=== PATIENT | female | born 1940 | race Caucasian/White ===

== ENCOUNTER 2021-06-09 01:11 | Inpatient (IN) | payer MEDICARE, SELFPAY ==
[~2021-06-09] VITALS: Ht 167.6 cm; Wt 59.0 kg
--- NOTE | 2021-06-09 01:18 | NUR ---
PT JEROME HIDALGO. TAKEN TO CHAIR
--- NOTE | 2021-06-09 01:19 | NUR ---
Dr. Urbina examining patient.
[2021-06-09 01:25] VITALS: BP 152/60
[2021-06-09] MEDS ORDERED: AZITHROMYCIN 500 MG in DEXTROSE 5% 250 ML IV ONE (01:25)
[2021-06-09 01:41] LABS: BASOPHILS # (AUTO) 0.1 K/uL (0.00-0.22); BASOPHILS % (AUTO) 0.4 % (0.0-2.0); EOSINOPHILS # (AUTO) 0.2 K/uL (0-0.4); EOSINOPHILS % (AUTO) 0.9 % (0.0-4.0); HEMATOCRIT 27.2 % (36-48); HEMOGLOBIN 8.5 g/dL (12.0-16.0); LYMPHOCYTES # (AUTO) 1.3 K/uL (2.5-16.5); LYMPHOCYTES % (AUTO) 6.8 % (20.5-51.1); MEAN CORPUSCULAR HEMOGLOBIN 27 pg (27-31); MEAN CORPUSCULAR HGB CONC 31 g/dL (33-37); MEAN CORPUSCULAR VOLUME 85.8 fL (80-94); MONOCYTES # (AUTO) 1.9 K/uL (0.8-1.0); MONOCYTES % (AUTO) 9.7 % (1.7-9.3); NEUTROPHILS # (AUTO) 15.7 K/uL (1.8-7.7); PLATELET COUNT (AUTO) 420 K/uL (140-450); RED BLOOD CELL COUNT(AUTO) 3.17 MIL/uL (4.20-5.40); RED CELL DISTRIBUTION WIDTH 18.3 % (11.6-13.7); WHITE BLOOD COUNT (AUTO) 19.1 K/uL (4.8-10.8)
--- NOTE | 2021-06-09 01:53 | NUR ---
[place] [facility] [facility] [place] PT IS COVID+ FOR THE SECOND TIME. PT IS FULLY VACCINATED. PT IS ON 4L NC AT 98%. HX- AFIB, HTN DM
[2021-06-09 02:12] LABS: ALBUMIN 1.9 g/dL (3.4-5.0); ANION GAP 10.4 (8-16); ASPARTATE AMINOTRANSFERASE 30 U/L (15-37); CARBON DIOXIDE 30.9 mmol/L (21-32); CHLORIDE 103 mmol/L (98-107); CREATININE 1.1 mg/dL (0.6-1.3); GLUCOSE 153 mg/dL (74-106); POTASSIUM 4.3 mmol/L (3.5-5.1); SODIUM SERUM 140 mmol/L (136-145); TOTAL BILIRUBIN 0.7 mg/dL (0.0-1.0); UREA NITROGEN, BLOOD 30 mg/dL (7-18)
[2021-06-09 02:24] LABS: NEUTROPHILS % (AUTO) 82.2 % (42.2-75.2)
[2021-06-09] MEDS ORDERED: cefTRIAXone 1,000 MG VIAL ONE (04:02)
--- NOTE | 2021-06-09 04:08 | NUR ---
PT TAKEN TO CT
--- NOTE | 2021-06-09 04:26 | NUR ---
PT RETURN FROM CT
--- NOTE | 2021-06-09 05:20 | NUR ---
boosted patient up and repositioned patient-- tolerated well.
[2021-06-09] MEDS ORDERED: AZITHROMYCIN 500 MG INJ VIAL IV ONE (05:35)
--- NOTE | 2021-06-09 06:25 | NUR ---
patient complaining of difficulty breathing and chest pressure. RONY mota asked to call RT for breathing tx. called RT to come.
--- NOTE | 2021-06-09 08:00 | NUR ---
PT ATE 100% BREAKFAST, Patient appears to be resting in bed. Vital Signs within normal limits. Respirations even and unlabored.
[2021-06-09] MEDS ORDERED: guaiFENesin DM 200/20 MG-10 ML 10 ML UDC PO PRN (08:15)
[2021-06-09] MEDS ORDERED: POTASSIUM CHLORIDE 10 MEQ TABER PO PRN (08:15)
[2021-06-09] MEDS: NACL 0.9% 1,000 ML IV SCH ×2 (08:15→23:29)
[2021-06-09] MEDS ORDERED: ACETAMINOPHEN 325 MG TAB PO PRN (08:15)
[2021-06-09] MEDS: CLINDAMYCIN 600 MG in DEXTROSE 5% 50 ML IV SCH ×3 (08:15→23:30)
[2021-06-09] MEDS ORDERED: ONDANSETRON 4 MG/2 ML VIAL IM/IVP PRN (08:15)
[2021-06-09] MEDS ORDERED: ALBUTEROL HFA MDI 90 MCG/ACTUATION 8 GM INH PRN (08:20)
[2021-06-09 08:57] LABS: PROTHROMBIN TIME 14.7 secs (10.8-13.4)
[2021-06-09] MEDS ORDERED: COMMUNICATION ORDER MC SCH ×2 (09:00)
[2021-06-09] MEDS: ZINC SULF 220 MG CAP PO SCH (09:00)
[2021-06-09] MEDS: BARICITINIB 2 MG TAB PO SCH ×2 (09:00→14:42)
[2021-06-09] MEDS: ASCORBIC ACID 500 MG TAB PO SCH (09:00)
[2021-06-09] MEDS ORDERED: LEVOFLOXACIN 500 MG/D5W PREMIX 100 ML IV SCH (09:00)
[2021-06-09] MEDS: PANTOPRAZOLE 40 MG TABEC PO SCH (09:00)
[2021-06-09 09:12] LABS: CHOL/HDL RATIO 3.9 (1-4.5); FREE T4 (FREE THYROXINE) 1.36 ng/dL (0.76-1.46); MAGNESIUM 2.4 mg/dL (1.8-2.4); PHOSPHORUS 3.4 mg/dL (2.5-4.9); THYROID STIMULATING HORMONE 2.34 uIU/mL (0.34-3.74)
[2021-06-09] MEDS ORDERED: remdesivir CLINICAL MONITORING 1 EA MISC MC PRN (09:55)
[2021-06-09] MEDS ORDERED: REMDESIVIR. 200 MG in NACL 0.9% 100 ML IV SCH (12:00)
--- NOTE | 2021-06-09 12:00 | NUR ---
PT SOILED HERSELF, CLEAN GROWN AND NEW LINENS GIVEN Addendum: 06/09/21 at 1734 by JUSTYN UNABLE TO OBTAIN UA.
[2021-06-09] MEDS ORDERED: CLINDAMYCIN 600 MG/4 ML VIAL ONE ×2 (14:12→22:59)
[2021-06-09] MEDS ORDERED: LEVOFLOXACIN 500 MG/D5W PREMIX 100 ML IV ONE (14:14)
--- NOTE | 2021-06-09 14:30 | NUR ---
DR GORDON AT BEDSIDE ADVISED AM MEDS GIVEN LATE, HE STS "THANK YOU FOR LETTING ME KNOW."
[2021-06-09] MEDS ORDERED: RENAL DOSING PER PHARMACY MC PRN (14:55)
--- NOTE | 2021-06-09 15:30 | NUR ---
Pt report given to DANIELA Rubin Transfer of care at this time.
--- NOTE | 2021-06-09 15:42 | NUR ---
PT MOVED FROM CHAIR E TO BED 13
--- NOTE | 2021-06-09 16:30 | NUR ---
Assumed care of pt at this time. Pt is AOX4, able to make needs known. Resp even and unlabored on 4LPM at this time. Lung sounds are clear/dim. Abd soft and non-tender. Moderate assistance needed. Pt assisted to reposition for comfort. Incont X2. Pulses are equal bilat. Fall risk preventions in place at this time.
[2021-06-09] MEDS: HYDROcodone/APAP 7.5/325 MG 1 TAB PO PRN (17:41)
--- NOTE | 2021-06-09 19:34 | NUR ---
Pt report given to DANIELA Funes. Transfer of care at this time.
--- NOTE | 2021-06-09 19:37 | NUR ---
Brigitte diamond in ED - 06/09/21 at 1938 by [facility] Pt report given to DANIELA Funes. Transfer of care at this time.
[2021-06-09] MEDS: FUROSEMIDE 20 MG/2 ML VIAL IVP SCH (23:15)
[2021-06-10] MEDS: ZOLPIDEM 5 MG TAB PO PRN (01:41)
--- NOTE | 2021-06-10 04:14 | NUR ---
PATIENT AWOKE WITH A PANIC, PATIENT HEART RATE 150s and goes down to 110s. patient vfib
[2021-06-10] MEDS ORDERED: CLINDAMYCIN 600 MG/4 ML VIAL ONE ×3 (04:26→23:04)
--- NOTE | 2021-06-10 05:27 | NUR ---
PT REPOSITIONED IN BED FOR COMFORT. HOB RAISED, RAILS UP X2, AND BED IN LOWEST SETTING.
--- NOTE | 2021-06-10 05:27 | NUR ---
MRSA AND NOVEL SWABS COLLECTED AND WALKED TO LAB.
[2021-06-10] MEDS: CLINDAMYCIN 600 MG in DEXTROSE 5% 50 ML IV SCH ×3 (05:34→23:20)
--- NOTE | 2021-06-10 06:40 | NUR ---
PT DIAPER CHANGED AND REPOSITIONED. PT TOLERATED WELL.
[2021-06-10] MEDS ORDERED: NACL 0.9% 1,000 ML IV SCH (07:05)
[2021-06-10] MEDS ORDERED: NICARDIPINE HYDROCHLORIDE 2.5 MG/ML VIAL IV ONE (07:05)
[2021-06-10] MEDS ORDERED: DILTIAZEM 25 MG/5 ML VIAL IVP ONE (07:06)
[2021-06-10] MEDS ORDERED: DILTIAZEM 25 MG/5 ML VIAL IVP SCH (07:15)
--- NOTE | 2021-06-10 07:30 | NUR ---
RECEIVED PT IN [facility] AOX4. AFIB ON MONITOR. DENIES PAIN OR DISCOMFORT. IV INTACT AND PATENT INFUSING FLUIDS TOLERATING WELL. NAD. SAFETY MAINTAINED.
[2021-06-10 08:07] LABS: T4 (THYROXINE) 6.3 ug/dL (4.5-12.0)
--- NOTE | 2021-06-10 08:58 | NUR ---
PT MOVED TO BED 05
[2021-06-10] MEDS: ASCORBIC ACID 500 MG TAB PO SCH (09:00)
[2021-06-10] MEDS: PANTOPRAZOLE 40 MG TABEC PO SCH (09:00)
[2021-06-10] MEDS ORDERED: BARICITINIB 2 MG TAB PO SCH (09:00)
[2021-06-10] MEDS: ZINC SULF 220 MG CAP PO SCH (09:00)
[2021-06-10] MEDS: LEVOFLOXACIN 250 MG/D5 PREMIX 50 ML IV SCH (09:00)
[2021-06-10] MEDS: FUROSEMIDE 20 MG/2 ML VIAL IVP SCH ×2 (09:00→23:23)
[2021-06-10] MEDS: NACL 0.9% 1,000 ML IV SCH (09:15)
--- NOTE | 2021-06-10 09:30 | NUR ---
ADRIANA WICK PLACED CHANGED AND REPOSITIONED FOR COMFORT. AFIB ON MONITOR. RECEIVED ORDERS TO PLACE HOME MEDS. NAD. SAFETY MAINTAINED.
[2021-06-10 09:49] LABS: BASOPHILS % (AUTO) 0.1 % (0.0-2.0); HEMATOCRIT 23.8 % (36-48); HEMOGLOBIN 7.5 g/dL (12.0-16.0); LYMPHOCYTES # (AUTO) 0.6 K/uL (2.5-16.5); LYMPHOCYTES % (AUTO) 4.5 % (20.5-51.1); MEAN CORPUSCULAR HEMOGLOBIN 27 pg (27-31); MEAN CORPUSCULAR HGB CONC 32 g/dL (33-37); MEAN CORPUSCULAR VOLUME 85.8 fL (80-94); MONOCYTES # (AUTO) 0.5 K/uL (0.8-1.0); MONOCYTES % (AUTO) 3.6 % (1.7-9.3); NEUTROPHILS # (AUTO) 11.8 K/uL (1.8-7.7); NEUTROPHILS % (AUTO) 91.8 % (42.2-75.2); PLATELET COUNT (AUTO) 347 K/uL (140-450); RED BLOOD CELL COUNT(AUTO) 2.77 MIL/uL (4.20-5.40); RED CELL DISTRIBUTION WIDTH 18.5 % (11.6-13.7); WHITE BLOOD COUNT (AUTO) 12.9 K/uL (4.8-10.8)
[2021-06-10] MEDS ORDERED: POTA10TA70 PO (09:57)
[2021-06-10] MEDS ORDERED: DABI150C PO (09:57)
[2021-06-10] MEDS ORDERED: LEVO0.114 PO (09:57)
[2021-06-10] MEDS ORDERED: FURO-572 PO (09:57)
[2021-06-10] MEDS ORDERED: ATOR40TA PO (09:57)
[2021-06-10] MEDS ORDERED: DILT-135 PO (09:57)
[2021-06-10] MEDS ORDERED: GLIP5TER PO (09:57)
[2021-06-10] MEDS ORDERED: METO25TA PO (09:57)
[2021-06-10] MEDS ORDERED: DILTIAZEM 25 MG/5 ML VIAL IVP PRN (10:05)
[2021-06-10 10:09] LABS: ALBUMIN 1.8 g/dL (3.4-5.0); ANION GAP 12.9 (8-16); ASPARTATE AMINOTRANSFERASE 24 U/L (15-37); CARBON DIOXIDE 30.3 mmol/L (21-32); CHLORIDE 105 mmol/L (98-107); GLUCOSE 189 mg/dL (74-106); POTASSIUM 4.2 mmol/L (3.5-5.1); SODIUM SERUM 144 mmol/L (136-145); TOTAL BILIRUBIN 0.5 mg/dL (0.0-1.0); UREA NITROGEN, BLOOD 25 mg/dL (7-18)
[2021-06-10] MEDS ORDERED: METOPROLOL 50 MG TAB PO SCH (11:00)
[2021-06-10] MEDS ORDERED: DILTIAZEM 120 MG CAPER PO SCH (11:00)
[2021-06-10] MEDS ORDERED: REMDESIVIR. 100 MG in NACL 0.9% 100 ML IV SCH (12:00)
--- NOTE | 2021-06-10 13:00 | NUR ---
BEDSIDE THORACENTESIS BEING PERFORMED
--- NOTE | 2021-06-10 16:18 | NUR ---
PATIENT HAS BEEN SCREENED AND CATEGORIZED MODERATE NUTRITION RISK. PATIENT WILL BE SEEN WITHIN 3-5 DAYS OF ADMISSION. / BHARATH [address]
--- NOTE | 2021-06-10 18:32 | NUR ---
PT RESTING IN RNEY NO CHANGES NOTED. SAFETY MAINTAINED
--- NOTE | 2021-06-10 19:16 | NUR ---
REPORT RECEIVED FROM DANIELA CHAVIRA FOR CONTINUITY OF PT CARE AT THIS TIME.
--- NOTE | 2021-06-10 19:24 | NUR ---
PT LAYING IN BED AWAKE BED LOCKED IN LOWEST POSITION W X2 SIDERAILS UP FOR PT SAFETY. HOB SLIGHTLY ELEVATED. PT REPORTS SLIGHT SOB PT ON 2L NC W O2 SAT 98%, DENIES CHEST PAIN, NAUSEA, DIZZYNESS. PT REPORTS MILD TAIL BONE PAIN FROM LAYING DOWN BUT JUST REPOSITIONED FOR COMFORT AND FEELING BETTER. BREATHING EVEN AND UNLABORED. NAD NOTED WILL CONTINUE TO MONITOR. VSS ON MONITOR.
--- NOTE | 2021-06-10 20:07 | NUR ---
CALLED DANIELA GONZALEZ TO GIVE REPORT. NO ANSWER AT THIS TIME.
--- NOTE | 2021-06-10 20:56 | NUR ---
Pt report given to DANIELA GONZALEZ. Transfer of care at this time.
--- NOTE | 2021-06-10 21:25 | NUR ---
Patient will be admitted to care of [facility]. Admited to TELEMETRY. Belongings list completed. Report to CECI GONZALEZ.
[2021-06-10 21:28] VITALS: BP 135/105
--- NOTE | 2021-06-10 21:45 | NUR ---
RECEIVED PT FROM ER NURSE FOR CONTINUITY OF CARE VIA POLI. PT A&O X 4. ON 4L O2 VIA NC SATING AT 98%. PT HAS IV ON R AC G18 PATENT AND INTACT. SKIN WARM, DRY AND INTACT. PT WAS ORIENTED TO ROOM AND CALL LIGHT.CLEANED AND CHANGED. PROVIDED WARM BLANKETS.BED IN LOW LOCKED POSITION. MRSA SWAB DONE. ALL PRECAUTIONS IN PLACE. WILL CONTINUE TO MONITOR.
--- NOTE | 2021-06-10 22:16 | NUR ---
Note lobo in EDM - 06/11/21 at 0533 by ALFONSO Patient will be admitted to care of [facility]. Admited to TELEMETRY. Belongings list completed. Report to CECI GONZALEZ.
[2021-06-10] MEDS: DABIGATRAN ETEXILATE MESYLAT 75 MG CAP PO SCH (23:22)
[2021-06-10] MEDS: METOPROLOL 50 MG TAB PO SCH (23:23)
--- NOTE | 2021-06-11 | NUR ---
SCHEDULED MEDICATIONS GIVEN. PT TOLERATED WELL. ALL PRECAUTIONS IN PLACE. WILL CONTINUE TO MONITOR.
--- NOTE | 2021-06-11 02:00 | NUR ---
PT ASLEEP. VISIBLE CHEST RISE AND FALL NOTED.CALL LIGHT WITHIN REACH. WILL CONTINUE TO MONITOR.
[2021-06-11 04:00] VITALS: BP 140/63
[2021-06-11] MEDS ORDERED: CLINDAMYCIN 600 MG/4 ML VIAL ONE (04:03)
--- NOTE | 2021-06-11 04:24 | NUR ---
SCHEDULED MEDICATIONS GIVEN. PT TOLERATED WELL. ALL PRECAUTIONS IN PLACE. WILL CONTINUE TO MONITOR.
[2021-06-11] MEDS: CLINDAMYCIN 600 MG in DEXTROSE 5% 50 ML IV SCH ×3 (04:37→21:00)
--- NOTE | 2021-06-11 06:15 | NUR ---
SCHEDULED MEDICATIONS GIVEN. PT TOLERATED WELL. ALL PRECAUTIONS IN PLACE. WILL CONTINUE TO MONITOR.
[2021-06-11] MEDS: LEVOTHYROXINE 0.112 MG TAB PO SCH (06:28)
[2021-06-11 06:56] LABS: ALBUMIN 1.8 g/dL (3.4-5.0); ANION GAP 9.5 (8-16); ASPARTATE AMINOTRANSFERASE 28 U/L (15-37); CARBON DIOXIDE 31.1 mmol/L (21-32); CHLORIDE 103 mmol/L (98-107); GLUCOSE 159 mg/dL (74-106); POTASSIUM 3.6 mmol/L (3.5-5.1); SODIUM SERUM 140 mmol/L (136-145); TOTAL BILIRUBIN 0.4 mg/dL (0.0-1.0); UREA NITROGEN, BLOOD 24 mg/dL (7-18)
--- NOTE | 2021-06-11 06:56 | NUR ---
PT IS STABLE. NO ACUTE EVENTS THROUGHOUT THE NIGHT. NO S/SX OF DISTRESS AT THE MOMENT. BREATHING EQUAL AND UNLABORED. ALL NEEDS MET. ALL SAFETY MEASURES IN PLACE.WILL ENDORSE TO AM SHIFT NURSE.
[2021-06-11 07:24] LABS: BASOPHILS % (AUTO) 0.1 % (0.0-2.0); HEMATOCRIT 22.3 % (36-48); LYMPHOCYTES # (AUTO) 0.9 K/uL (2.5-16.5); MEAN CORPUSCULAR HEMOGLOBIN 27 pg (27-31); MEAN CORPUSCULAR HGB CONC 31 g/dL (33-37); MEAN CORPUSCULAR VOLUME 85.8 fL (80-94); MONOCYTES # (AUTO) 0.7 K/uL (0.8-1.0); MONOCYTES % (AUTO) 4.1 % (1.7-9.3); NEUTROPHILS # (AUTO) 15.4 K/uL (1.8-7.7); NEUTROPHILS % (AUTO) 90.8 % (42.2-75.2); PLATELET COUNT (AUTO) 328 K/uL (140-450); RED CELL DISTRIBUTION WIDTH 18.3 % (11.6-13.7)
--- NOTE | 2021-06-11 07:30 | NUR ---
RECEIVED PT AAOX4. NO SOB NOTED. NO C/O PAIN AT THIS TIME. IV TO RAC PATENT AND INTACT. CHEST, DIMINISHED AIR ENTRY TO THE BASES, PT ON 4 LPM OXYGEN VIA NASAL CANULA. ABDOMEN SOFT, BOWEL SOUNDS PRESENT. BED ON LOW POSITION WITH 3 SIDE RAILS RAISED UP. INSTRUCTED PT TO CALL FOR ASSISTANCE, CALL LIGHT WITHIN REACH, PT VERBALIZED UNDERSTANDING.
--- NOTE | 2021-06-11 07:40 | NUR ---
ENDORSED TO AM SHIFT NURSE FOR CONTINUITY OF CARE. PT IS STABLE.
[2021-06-11 08:00] VITALS: BP 149/86
[2021-06-11] MEDS: ATORVASTATIN 20 MG TAB PO SCH (08:44)
[2021-06-11] MEDS: DABIGATRAN ETEXILATE MESYLAT 75 MG CAP PO SCH ×2 (08:45→21:00)
[2021-06-11] MEDS: PANTOPRAZOLE 40 MG TABEC PO SCH (08:47)
[2021-06-11] MEDS: ZINC SULF 220 MG CAP PO SCH (08:47)
[2021-06-11] MEDS: METOPROLOL 50 MG TAB PO SCH ×2 (08:47→21:00)
[2021-06-11] MEDS: DILTIAZEM 120 MG CAPER PO SCH (08:47)
[2021-06-11] MEDS: ASCORBIC ACID 500 MG TAB PO SCH (08:48)
[2021-06-11] MEDS: glipiZIDE 5 MG TAB PO SCH (08:48)
[2021-06-11] MEDS: LEVOFLOXACIN 250 MG/D5 PREMIX 50 ML IV SCH (08:49)
[2021-06-11] MEDS: FUROSEMIDE 20 MG/2 ML VIAL IVP SCH ×2 (08:49→21:00)
--- NOTE | 2021-06-11 11:10 | NUR ---
PHYSICAL THERAPY ON GOING AT THE BEDSIDE.
[2021-06-11 12:00] VITALS: BP 138/82
--- NOTE | 2021-06-11 14:30 | NUR ---
PT RESTING. NO SOB NOTED. NO SIGNS OF PAIN AT THIS TIME.
[2021-06-11 16:00] VITALS: BP 144/51
--- NOTE | 2021-06-11 18:05 | NUR ---
PT EATING DINNER. NO SOB NOTED. NO COMPLAINTS MADE.
--- NOTE | 2021-06-11 19:00 | NUR ---
PT AWAKE. NO SOB NOTED. NO COMPLAINTS OF PAIN AT THIS TIME. WILL ENDORSE TO NEXT SHIFT NURSE FOR CONTINUITY OF CARE.
[2021-06-11 20:00] VITALS: BP 125/60
[2021-06-12] VITALS: BP 120/65
--- NOTE | 2021-06-12 02:00 | NUR ---
PATIENT AWAKE ALERT IN ISOLATION HAS COVID+ PATIENT HAS NO COUGH LUNGS DIMINISH ON MONITOR A-FIB. HAS 02 ON 3 LITERS N/C. PATIENT PCR PENDING NO SIGNS OF RESP. DISTRESS.
[2021-06-12 04:00] VITALS: BP 122/67
[2021-06-12] MEDS: CLINDAMYCIN 600 MG in DEXTROSE 5% 50 ML IV SCH ×3 (05:00→20:58)
[2021-06-12] MEDS: LEVOTHYROXINE 0.112 MG TAB PO SCH (06:30)
[2021-06-12 07:10] LABS: HEMOGLOBIN 7.4 g/dL (12.0-16.0); LYMPHOCYTES # (AUTO) 0.6 K/uL (2.5-16.5); LYMPHOCYTES % (AUTO) 4.4 % (20.5-51.1); MEAN CORPUSCULAR HEMOGLOBIN 27 pg (27-31); MEAN CORPUSCULAR HGB CONC 32 g/dL (33-37); MEAN CORPUSCULAR VOLUME 85.5 fL (80-94); MONOCYTES # (AUTO) 0.4 K/uL (0.8-1.0); MONOCYTES % (AUTO) 2.8 % (1.7-9.3); NEUTROPHILS # (AUTO) 13.6 K/uL (1.8-7.7); NEUTROPHILS % (AUTO) 92.8 % (42.2-75.2); PLATELET COUNT (AUTO) 343 K/uL (140-450); WHITE BLOOD COUNT (AUTO) 14.6 K/uL (4.8-10.8)
[2021-06-12 07:19] LABS: ANION GAP 9.7 (8-16); ASPARTATE AMINOTRANSFERASE 39 U/L (15-37); CARBON DIOXIDE 31.7 mmol/L (21-32); CHLORIDE 102 mmol/L (98-107); GLUCOSE 148 mg/dL (74-106); POTASSIUM 4.4 mmol/L (3.5-5.1); SODIUM SERUM 139 mmol/L (136-145); TOTAL BILIRUBIN 0.4 mg/dL (0.0-1.0); UREA NITROGEN, BLOOD 28 mg/dL (7-18)
--- NOTE | 2021-06-12 07:41 | NUR ---
REPORT RECEIVED FROM PM SHIFT RN FAM FOR CONTINUITY OF CARE. PT. SLEEPG THE BED. NO DISTRESS OBSERVED. ALL SAFETY MEASURES IN PLACED. IV SITE RAC 20G. WITH IV FLUID RUNNING @ 80ML/HR.WILL CONTINUE TO MONITOR THE PT.
[2021-06-12 08:00] VITALS: BP 145/86
[2021-06-12] MEDS: glipiZIDE 5 MG TAB PO SCH (09:37)
[2021-06-12] MEDS: DABIGATRAN ETEXILATE MESYLAT 75 MG CAP PO SCH ×2 (09:39→22:07)
[2021-06-12] MEDS: ATORVASTATIN 20 MG TAB PO SCH (09:42)
[2021-06-12] MEDS: ASCORBIC ACID 500 MG TAB PO SCH (09:43)
[2021-06-12] MEDS: PANTOPRAZOLE 40 MG TABEC PO SCH (09:43)
[2021-06-12] MEDS: ZINC SULF 220 MG CAP PO SCH (09:43)
[2021-06-12] MEDS: DILTIAZEM 120 MG CAPER PO SCH (09:44)
[2021-06-12] MEDS: METOPROLOL 50 MG TAB PO SCH ×2 (09:44→22:05)
[2021-06-12] MEDS: LEVOFLOXACIN 250 MG/D5 PREMIX 50 ML IV SCH (09:50)
[2021-06-12] MEDS: FUROSEMIDE 20 MG/2 ML VIAL IVP SCH ×2 (09:51→22:04)
--- NOTE | 2021-06-12 10:35 | NUR ---
PT. ALERT AWAKE. CONTINUE WITH OR SUPPORT. NO RESP. DISTRESS NOTED. ALL SAFETY MEASURES IN PLACE. CALL LIGHT WITHIN REACH. MEDICATION ADMINISTERED DUE. PT. TOLERATED WELL. WILL CONTINUETO MONITOR THE PT.
[2021-06-12 12:00] VITALS: BP 148/71
[2021-06-12 16:00] VITALS: BP 139/58
--- NOTE | 2021-06-12 16:00 | NUR ---
PT. ALERT, AWAKE CONT. WITH NC OR, NO NOTED DISTRESS. ALL SAFETY MEASURES IN PLACE. CALL LIGHT WITHIN REACH. WILL CONTINUE TO MONITOR THE PT.
--- NOTE | 2021-06-12 19:47 | NUR ---
ENDORSED REPORT TO PM SHIFT DANIELA MORAN FOR CONTINUITY OF CARE. PT. STABLE.
--- NOTE | 2021-06-12 20:00 | NUR ---
RECEIVED PT FROM AM NURSE FOR CONTINUITY OF CARE. PT ON RM AIR 4 L NC ,IV ON RAC G18 AND RFA 22G. PT AOX4. NO S/SX OF DISTRESS NOTED.ALL SAFETY MEASURES ARE IN PLACE ,CALL LIGHT WITHIN EASY REACH
--- NOTE | 2021-06-12 21:00 | NUR ---
ALL MEDS GIVEN TOLERATED WELL, NO SIGNS OF DISTRESS NOTED. CLEANED AND REPOSITIONED .
--- NOTE | 2021-06-12 22:00 | NUR ---
BOTH IV SITES WERE INFILTRATED. NEW IV SITES INSERTED ON RH 22G. IV INTACT AND PATENT.
[2021-06-12] MEDS: ZOLPIDEM 5 MG TAB PO PRN (22:29)
[2021-06-13] VITALS: BP 149/68
--- NOTE | 2021-06-13 | NUR ---
PT IN BED SLEEPING, NO SIGNS OF DISTRESS NOTED.
--- NOTE | 2021-06-13 02:00 | NUR ---
PT STILL ASLEEP .NO SIGNS OF DISTRESS NOTED
[2021-06-13 04:00] VITALS: BP 147/75
--- NOTE | 2021-06-13 04:00 | NUR ---
PT AWAKE AT THIS TIME. CLEANED AND REPOSITIONED , NO DISTRESS NOTED
[2021-06-13] MEDS: CLINDAMYCIN 600 MG in DEXTROSE 5% 50 ML IV SCH ×2 (05:45→13:00)
--- NOTE | 2021-06-13 06:00 | NUR ---
PATIENT AWAKE ,NO SIGNS OF DISTRESS NOTED.SAFETY MEASURES IN PLACE,CALL LIGHT IN PLACE
[2021-06-13] MEDS: LEVOTHYROXINE 0.112 MG TAB PO SCH (06:06)
--- NOTE | 2021-06-13 06:26 | NUR ---
PT IS STABLE. NO ACUTE EVENT THROUGHOUT THE NIGHT. NO S/SX OF DISTRESS NOTED. ALL NEEDS MET. ALL PRECAUTIONS IN PLACE. CALL LIGHT WITHIN REACH. WILL ENDORSE TO AM SHIFT NURSE.
[2021-06-13 06:38] LABS: BASOPHILS % (AUTO) 0.2 % (0.0-2.0); EOSINOPHILS # (AUTO) 0.2 K/uL (0-0.4); EOSINOPHILS % (AUTO) 1.4 % (0.0-4.0); HEMATOCRIT 26.9 % (36-48); HEMOGLOBIN 8.4 g/dL (12.0-16.0); LYMPHOCYTES # (AUTO) 0.6 K/uL (2.5-16.5); LYMPHOCYTES % (AUTO) 3.7 % (20.5-51.1); MEAN CORPUSCULAR HEMOGLOBIN 27 pg (27-31); MEAN CORPUSCULAR HGB CONC 31 g/dL (33-37); MEAN CORPUSCULAR VOLUME 85.9 fL (80-94); MONOCYTES # (AUTO) 0.5 K/uL (0.8-1.0); MONOCYTES % (AUTO) 2.9 % (1.7-9.3); NEUTROPHILS # (AUTO) 14.5 K/uL (1.8-7.7); NEUTROPHILS % (AUTO) 91.8 % (42.2-75.2); PLATELET COUNT (AUTO) 377 K/uL (140-450); RED BLOOD CELL COUNT(AUTO) 3.13 MIL/uL (4.20-5.40); RED CELL DISTRIBUTION WIDTH 18.2 % (11.6-13.7); WHITE BLOOD COUNT (AUTO) 15.8 K/uL (4.8-10.8)
--- NOTE | 2021-06-13 07:24 | NUR ---
PT ENDORSED TO AM SHIFT NURSE FOR CONTINUITY OF CARE. PT IS STABLE.
--- NOTE | 2021-06-13 07:25 | NUR ---
REPORT RECEIVED FROM PM SHIFT EN LUISA FOR CONTINUITY OF CARE.PT. COMFORTABLY SLEEPING . NO DISTRESS NOTED ON NC 3LPM. ALL SAFETY MEASURES IN PLACE. WILL CONTIBNUE TO MONBITOR THE PT.
[2021-06-13 08:00] VITALS: BP 154/67
[2021-06-13] MEDS: glipiZIDE 5 MG TAB PO SCH ×2 (08:02→09:27)
[2021-06-13 08:11] LABS: ALBUMIN 2.1 g/dL (3.4-5.0); ANION GAP 13.4 (8-16); ASPARTATE AMINOTRANSFERASE 35 U/L (15-37); CARBON DIOXIDE 30.9 mmol/L (21-32); CHLORIDE 98 mmol/L (98-107); GLUCOSE 179 mg/dL (74-106); POTASSIUM 4.3 mmol/L (3.5-5.1); SODIUM SERUM 138 mmol/L (136-145); TOTAL BILIRUBIN 0.3 mg/dL (0.0-1.0); UREA NITROGEN, BLOOD 28 mg/dL (7-18)
[2021-06-13] MEDS: ZINC SULF 220 MG CAP PO SCH (09:27)
[2021-06-13] MEDS: DABIGATRAN ETEXILATE MESYLAT 75 MG CAP PO SCH ×2 (09:29→21:22)
[2021-06-13] MEDS: FUROSEMIDE 20 MG/2 ML VIAL IVP SCH ×2 (09:31→22:11)
[2021-06-13] MEDS: ATORVASTATIN 20 MG TAB PO SCH (09:32)
[2021-06-13] MEDS: METOPROLOL 50 MG TAB PO SCH ×2 (09:32→21:21)
[2021-06-13] MEDS: ASCORBIC ACID 500 MG TAB PO SCH (09:32)
[2021-06-13] MEDS: PANTOPRAZOLE 40 MG TABEC PO SCH (09:33)
[2021-06-13] MEDS: DILTIAZEM 120 MG CAPER PO SCH (09:33)
[2021-06-13] MEDS: LEVOFLOXACIN 250 MG/D5 PREMIX 50 ML IV SCH (09:35)
--- NOTE | 2021-06-13 10:00 | NUR ---
CLEANED AND CHANGED THE LINEN. KEPT DRY AND CLEAN. REPOSITIONED THE PT. PT. STABLE, ON NC 3L. ALERT AWAKE. NOT IN DISTRESS. ALL SAFETY MEASURES IN PLACE. CLOSELY MONITORING THE PT.
[2021-06-13 12:00] VITALS: BP 143/75
--- NOTE | 2021-06-13 12:05 | NUR ---
06/13/21 RD INITIAL ASSESSMENT COMPLETED PLEASE REFER TO NUTRITION ASSESSMENT UNDER CARE ACTIVITY FOR ESTIMATED NUTRITIONAL NEEDS. 1. IF MEDICALLY APPROPRIATE, ADVANCE TO [facility] 60GM MECHANICAL SOFT DIET 2. RD TO FOLLOW-UP 7 DAYS, LOW RISK (DOWNGRADED D/T PT EATING WELL WITH NO GI SYMPTOMS) BHARATH [address]
--- NOTE | 2021-06-13 12:06 | NUR ---
MADE ROUND TO THE PT'S ROOM. STABLE, COMFORTABLY LYING IN THE BED. NO DISTRESS OBSERVED. SAFETY MEASURES IN PLACE. CALL LIGHT WITHIN REACH. WILL CONTINUE TO MONITOR THE PT.
--- NOTE | 2021-06-13 14:35 | NUR ---
PT. RESTING IN THE BED COMFORTABLY. WITH NO DISTRESS OBSERVE. ALL SAFETY MEASURES IN PLACE. CALL LIGHT WITHIN REACH. WILL CONTINUE TO MONITOR THE PT.
[2021-06-13 16:00] VITALS: BP 138/81
--- NOTE | 2021-06-13 17:38 | NUR ---
PT. RESTING IN THE BED. CONTINUE NC O2 3.0L. WITH NO SIGNS OF DISTRESS OBSERVED. ALL SAFETY MEASURES IN PLACE. CALL LIGHT WITHIN REACH. WILL CONTINUE TO MONITOR THE PT.
--- NOTE | 2021-06-13 19:39 | NUR ---
ENDORSED REPORT TO PM SHIFT NURSE FOR CONTINUITY OF CARE. PT. STABLE.
--- NOTE | 2021-06-13 19:40 | NUR ---
RECEIVED PATIENT REPORT FROM AM SHIFT NURSE FOR CONTINUITY OF CARE. PATIENT IN BED RESTING COMFORTABLY WITH HOB IN SEMI-FOWLERS POSITION. BREATHING EVEN AND UNLABORED WITH NO SOB NOTED. NOT IN DISTRESS. DENIES ANY PAIN AT THIS TIME. ALL SAFETY MEASURES IN PLACE. CALL LIGHT WITHIN REACH. WILL CONTINUE WITH CURRENT PLAN OF CARE.
[2021-06-13 20:00] VITALS: BP 137/61
--- NOTE | 2021-06-13 20:00 | NUR ---
REVIEWED PLAN OF CARE WITH SUKUMAR ROCK LVN AND WILL CONTINUE WITH PLAN OF CARE.
[2021-06-13] MEDS ORDERED: remdesivir COMMUNICATION ORDER 1 EA MISC MC PRN (20:35)
[2021-06-13] MEDS: ZOLPIDEM 5 MG TAB PO PRN (21:25)
--- NOTE | 2021-06-13 21:25 | NUR ---
ALL DUE MEDICATIONS GIVEN PER MD ORDER. TOLERATED WELL. NO ASE NOTED. PATIENT DENIES ANY PAIN AT THIS TIME. PATIENT REQUESTED FOR SLEEPING MEDICATION. ADMINISTERED AMBIEN. TOLERATED WELL. NO ASE NOTED. PLACED CALL LIGHT WITHIN REACH. WILL CONTINUE TO MONITOR.
--- NOTE | 2021-06-13 22:57 | NUR ---
ROUNDED ON PATIENT. SLEEPING WELL WITH VISIBLE CHEST RISING AND FALLING. NO SOB NOTED. CALL LIGHT WITHIN REACH. WILL CONTINUE TO MONITOR.
--- NOTE | 2021-06-14 00:53 | NUR ---
ANSWERED PATIENT CALL LIGHT. PATIENT NEEDS TO BE CHANGE. NURSING CARE PROVIDED. ALL SAFETY MEASURES IN PLACE. CALL LIGHT WITHIN REACH. WILL CONTINUE TO MONITOR.
--- NOTE | 2021-06-14 03:04 | NUR ---
CHECKED ON PATIENT. SLEEPING WELL WITH VISIBLE CHEST RISING AND FALLING. CALL LIGHT WITHIN REACH. WILL CONTINUE TO MONITOR.
[2021-06-14 04:00] VITALS: BP 144/83
--- NOTE | 2021-06-14 05:25 | NUR ---
ANSWERED PATIENT CALL LIGHT. PATIENT REQUESTING FOR WARM BLANKET. WARM BLANKET PROVIDED. CALL LIGHT WITHIN REACH. WILL CONTINUE TO MONITOR.
[2021-06-14] MEDS: LEVOTHYROXINE 0.112 MG TAB PO SCH (06:16)
--- NOTE | 2021-06-14 07:10 | NUR ---
ENDORSED PATIENT REPORT TO AM SHIFT NURSE FOR CONTINUITY OF CARE. PATIENT IS STABLE.
--- NOTE | 2021-06-14 07:30 | NUR ---
RECEIVED REPORT FROM MACHINE SIGN WRITER NURSE FOR CONTINUITY OF CARE, POC DISCUSSED. PT IS STABLE IN BED WITH NO ACUTE S/S OF DISTRESS. ALL SAFETY MEASURES IN PLACE, CALL LIGHT WITHIN REACH. WILL CONTINUE TO MONITOR.
[2021-06-14 07:32] LABS: HEMATOCRIT 26.4 % (36-48); HEMOGLOBIN 8.1 g/dL (12.0-16.0); MEAN CORPUSCULAR HEMOGLOBIN 26 pg (27-31); MEAN CORPUSCULAR HGB CONC 31 g/dL (33-37); MEAN CORPUSCULAR VOLUME 86.3 fL (80-94); PLATELET COUNT (AUTO) 366 K/uL (140-450); RED BLOOD CELL COUNT(AUTO) 3.06 MIL/uL (4.20-5.40); RED CELL DISTRIBUTION WIDTH 18.8 % (11.6-13.7); WHITE BLOOD COUNT (AUTO) 17.8 K/uL (4.8-10.8)
[2021-06-14 07:57] LABS: ANION GAP 10.9 (8-16); ASPARTATE AMINOTRANSFERASE 18 U/L (15-37); CARBON DIOXIDE 33.4 mmol/L (21-32); CHLORIDE 98 mmol/L (98-107); GLUCOSE 174 mg/dL (74-106); POTASSIUM 4.3 mmol/L (3.5-5.1); SODIUM SERUM 138 mmol/L (136-145); TOTAL BILIRUBIN 0.3 mg/dL (0.0-1.0); UREA NITROGEN, BLOOD 29 mg/dL (7-18)
[2021-06-14 08:00] VITALS: BP 148/74
[2021-06-14] MEDS: glipiZIDE 5 MG TAB PO SCH (08:00)
[2021-06-14] MEDS: PANTOPRAZOLE 40 MG TABEC PO SCH (08:19)
[2021-06-14] MEDS: ZINC SULF 220 MG CAP PO SCH (08:19)
[2021-06-14] MEDS: METOPROLOL 50 MG TAB PO SCH ×2 (08:20→23:30)
--- NOTE | 2021-06-14 08:24 | NUR ---
CHUYITA GLIPIZIDE ADMINISTERED FOR DAILY @ 0800, CALLED PHARMACY AND NOTIFIED THEM OF THE EMAR BEING OFF AND NO GLIPIZIDE ADMINISTERED TODAY, 06/14/21 @ 0800.
[2021-06-14] MEDS: ATORVASTATIN 20 MG TAB PO SCH (08:25)
[2021-06-14] MEDS: ASCORBIC ACID 500 MG TAB PO SCH (08:25)
[2021-06-14] MEDS: FUROSEMIDE 20 MG/2 ML VIAL IVP SCH ×2 (08:26→21:00)
[2021-06-14] MEDS: LEVOFLOXACIN 250 MG/D5 PREMIX 50 ML IV SCH (08:29)
[2021-06-14] MEDS: DILTIAZEM 120 MG CAPER PO SCH (08:29)
[2021-06-14] MEDS: DABIGATRAN ETEXILATE MESYLAT 75 MG CAP PO SCH ×2 (08:30→21:00)
[2021-06-14 08:45] LABS: BASOPHILS % (MANUAL) 0 % (0-2); EOSINOPHILS % (MANUAL) 0 % (0-4); LYMPHOCYTES % (MANUAL) 4 % (20-46); MONOCYTES % (MANUAL) 4 % (5-12)
[2021-06-14] MEDS: DOCUSATE SODIUM 100 MG GELCAP PO PRN (11:41)
[2021-06-14] MEDS: LORazepam 0.5 MG TAB PO PRN ×2 (11:41→22:33)
--- NOTE | 2021-06-14 12:00 | NUR ---
DC PLANNING BRIDGETTE CALLED [facility] AT SPOKE TO BRIANNA FROM ADMISSIONS LETTING HER KNOW ABOUT PATIENT PLANNED DC FROM [facility] TODAY BACK TO THEIR FACILITY. BRIDGETTE FAXED PATIENT'S INFORMATION AND CLINICALS AT WITH COMPLETE CONFIRMATION AT ABOUT 12:49. BRIANNA AGREED AND STATED THAT SHE WILL REVIEW CLINICALS, THEN WILL CALL THESE WAFER FAB TECHNICIAN BACK TO PROVIDE PATIENT'S ROOM INFORMATION. BRIDGETTE AGREED AND ENDED THE CALL DC PLANNING BRIANNA FROM ADMISSIONS CALL BACK BRIDGETTE STATING THAT PATIENT INFORMATION CLINICAL PACKETS WAS NOT COMPLETED WHEN FAXED AND REQUESTED TO BE SEND AGAIN. SW AGREED AND FAXED ALL PACKET AGAIN WITH COMPLETED CONFIRMATION AT ABOUT 13:58. BRIANNA FROM ADMISSIONS CALL BACK BRIDGETTE STATING THAT PATIENT INFORMATION WAS REVIEW AND COMPLETED AND PATIENT WILL BE RETURNING BACK TO THEIR FACILITY TO ROOM 38C WITH ACCEPTING DR. STERLING. SW THANKED HER WITH THE INFORMATION AND WILL BE SETTING UP TRANSPORT FOR PATIENT AND ENDORSING INFORMATION BACK WITH ([facility])BRIANNA AND [facility]/DANIELA MANZO. BRIANNA AGREED AND ENDED THE CALL. BRIDGETTE REVIEW WITH AUTHORIZATION MANAGER GLOBAL ACCOUNT MANAGER PATIENT'S MD ORDERS TO BE DC UNTIL RDV MEDICATION COURSE IS COMPLETED WITH IN 3-5 DAYS AND WILL THEN BE READY FOR DC BACK TO ([facility]) FACILITY. BRIDGETTE CALL BRIANNA BACK FROM ([facility]) SNF TO DISCUSS CANCELATION OF DC FOR TODAY AND AGREED TO FOLLOW UP WITH PATIENT'S PROGRESS AND COMPLETION OF THE MEDS POSSIBLY BY THURSDAY. BRIANNA THANKED BRIDGETTE FOR INFORMATION AND ENDED THE CALL.
--- NOTE | 2021-06-14 12:05 | NUR ---
RADIOLOGY AT BEDSIDE
[2021-06-14] MEDS ORDERED: remdesivir CLINICAL MONITORING 1 EA MISC MC PRN (13:00)
[2021-06-14] MEDS ORDERED: REMDESIVIR. 200 MG in NACL 0.9% 100 ML IV SCH (13:00)
--- NOTE | 2021-06-14 13:08 | NUR ---
CHUYITA MEDICATION ADMINISTERED PER MD ORDER. PT IV PATENT AND INTACT. PT REPOSITIONED AND ALL NEEDS CURRENTLY MET. ALL SAFETY MEASURES IN PLACE. CALL LIGHT WITHIN REACH. WILL CONTINUE TO MONITOR.
--- NOTE | 2021-06-14 15:01 | NUR ---
PHYSICAL THERAPY CO-SIGN The Physical Therapy Progress Notes documented by Lodging Facilities Attendant have been reviewed. Reviewed/Co-Signed by: Ivelisse Chavez Documentation Done by: Darshana dunn PTA Addendum: 06/14/21 at 1501 by Ivelisse Chavez PT Amended: Links added.
--- NOTE | 2021-06-14 17:50 | NUR ---
PT CURRENTLY STABLE WITH NO ACUTE S/S OF DISTRESS. ALL SAFETY MEASURES IN PLACE, CALL LIGHT WITHIN REACH. WILL CONTINUE TO MONITOR.
--- NOTE | 2021-06-14 18:31 | NUR ---
PT IS CURRENTLY STABLE; ALL NEEDS CURRENTLY MET. WILL BE ENDORSED TO WOODS WARDEN NURSE. POC WILL BE DISCUSSED.
[2021-06-14] MEDS: ZOLPIDEM 5 MG TAB PO PRN (22:32)
[2021-06-14 22:42] VITALS: BP 152/86
[2021-06-15 03:28] VITALS: BP 142/81
[2021-06-15] MEDS: LEVOTHYROXINE 0.112 MG TAB PO SCH (05:49)
[2021-06-15] MEDS: HYDROcodone/APAP 7.5/325 MG 1 TAB PO PRN (05:50)
[2021-06-15] MEDS: DOCUSATE SODIUM 100 MG GELCAP PO PRN (05:51)
--- NOTE | 2021-06-15 07:35 | NUR ---
RECEIVED PT FROM ANDROID ARCHITECT NURSE FOR CONTINUITY OF CARE. PT A&O X 4. ON 2L O2 VIA NC SATING AT 98%. RESPIRATIONS EVEN AND UNLABORED. PT HAS IV ON RH 22G PATENT AND INTACT. SKIN WARM, DRY AND INTACT. PT DENIES PAIN. PLAN OF CARE DISCUSSED. BED IN LOW LOCKED POSITION. ALL PRECAUTIONS IN PLACE. WILL CONTINUE TO MONITOR.
[2021-06-15 08:00] VITALS: BP 147/64
[2021-06-15 08:44] LABS: BASOPHILS # (AUTO) 0.1 K/uL (0.00-0.22); BASOPHILS % (AUTO) 0.5 % (0.0-2.0); HEMATOCRIT 25.3 % (36-48); LYMPHOCYTES # (AUTO) 0.6 K/uL (2.5-16.5); LYMPHOCYTES % (AUTO) 3.1 % (20.5-51.1); MEAN CORPUSCULAR HEMOGLOBIN 27 pg (27-31); MEAN CORPUSCULAR HGB CONC 32 g/dL (33-37); MEAN CORPUSCULAR VOLUME 84.2 fL (80-94); MONOCYTES # (AUTO) 0.7 K/uL (0.8-1.0); MONOCYTES % (AUTO) 3.9 % (1.7-9.3); NEUTROPHILS # (AUTO) 17.1 K/uL (1.8-7.7); NEUTROPHILS % (AUTO) 92.5 % (42.2-75.2); PLATELET COUNT (AUTO) 359 K/uL (140-450); RED CELL DISTRIBUTION WIDTH 18.4 % (11.6-13.7); WHITE BLOOD COUNT (AUTO) 18.5 K/uL (4.8-10.8)
[2021-06-15 09:09] LABS: ALBUMIN 1.9 g/dL (3.4-5.0); ANION GAP 9.3 (8-16); ASPARTATE AMINOTRANSFERASE 17 U/L (15-37); CARBON DIOXIDE 33.7 mmol/L (21-32); CHLORIDE 100 mmol/L (98-107); CREATININE 0.9 mg/dL (0.6-1.3); GLUCOSE 180 mg/dL (74-106); SODIUM SERUM 139 mmol/L (136-145); TOTAL BILIRUBIN 0.2 mg/dL (0.0-1.0); UREA NITROGEN, BLOOD 31 mg/dL (7-18)
[2021-06-15] MEDS: ZINC SULF 220 MG CAP PO SCH (10:31)
[2021-06-15] MEDS: PANTOPRAZOLE 40 MG TABEC PO SCH (10:31)
[2021-06-15] MEDS: LEVOFLOXACIN 250 MG/D5 PREMIX 50 ML IV SCH (10:31)
[2021-06-15] MEDS: DILTIAZEM 120 MG CAPER PO SCH (10:31)
[2021-06-15] MEDS: DABIGATRAN ETEXILATE MESYLAT 75 MG CAP PO SCH ×2 (10:31→21:27)
[2021-06-15] MEDS: ATORVASTATIN 20 MG TAB PO SCH (10:31)
[2021-06-15] MEDS: METOPROLOL 50 MG TAB PO SCH ×2 (10:31→21:23)
[2021-06-15] MEDS: FUROSEMIDE 20 MG/2 ML VIAL IVP SCH ×2 (10:31→21:00)
[2021-06-15] MEDS: ASCORBIC ACID 500 MG TAB PO SCH (10:31)
--- NOTE | 2021-06-15 10:32 | NUR ---
ALL SCHEDULED MEDS GIVEN. PT IS STABLE. NO DISTRESS NOTED. WILL CONTINUE TO MONITOR.
--- NOTE | 2021-06-15 12:10 | NUR ---
CHECKED ON PATIENT. PT IS STABLE. NO DISTRESS NOTED. WILL CONTINUE TO MONITOR.
[2021-06-15] MEDS: REMDESIVIR. 100 MG in NACL 0.9% 100 ML IV SCH (13:51)
[2021-06-15] MEDS: LORazepam 0.5 MG TAB PO PRN (14:23)
--- NOTE | 2021-06-15 14:23 | NUR ---
PATIENT COMPLAINED OF INCREASED ANXIETY. ADMINISTERED ATIVAN PO PER MD ORDERED
[2021-06-15 16:00] VITALS: BP 128/56
--- NOTE | 2021-06-15 17:15 | NUR ---
CHECKED ON PATIENT. PT IS STABLE. NO DISTRESS NOTED. WILL CONTINUE TO MONITOR.
--- NOTE | 2021-06-15 19:34 | NUR ---
ENDORSED TO VEHICLE SALES PROFESSIONAL NURSE FOR CONTINUITY OF CARE. PT IS STABLE.
--- NOTE | 2021-06-15 19:35 | NUR ---
RECEIVED REPORT FROM MORNING SHIFT FOR CONTINUITY OF CARE. PATIENT IS STABLE IN BED. A&O4. VERBALLY RESPONSIVE AND ABLE TO COMMUNICATE NEEDS. ON 2L NC WITH NO APPARENT S/SX OF ACUTE DISTRESS. RESPIRATIONS EVEN AND UNLABORED. IV SITE OF RH22G IS PATENT/INTACT TKO. PATIENT IS INCONTINENT AND WILL USE CALL LIGHT FOR CHANGES. PLAN OF CARE AND WHITE COMMUNICATION BOARD UPDATED. CALL LIGHT WITHIN REACH. WILL CONTINUE TO MONITOR.
--- NOTE | 2021-06-15 20:00 | NUR ---
Patient's Plan of Care was discussed and reviewed with WET PRESS TENDER: Yousuf Flores
--- NOTE | 2021-06-15 21:20 | NUR ---
ADMINISTERED SCHEDULED MEDICATIONS PER MD ORDER. TOLERATED WELL. NO ADVERSE REACTION NOTED. DENIES PAIN. RESPIRATIONS EVEN AND UNLABORED WITH NO APPARENT S/SX OF ACUTE DISTRESS. REPOSITIONED PATIENT FOR COMFORT. WHITE COMMUNICATION BOARD UPDATED. ALL SAFETY MEASURES IN PLACE. CALL LIGHT WITHIN REACH. WILL CONTINUE TO MONITOR.
[2021-06-15] MEDS: ZOLPIDEM 5 MG TAB PO PRN (21:28)
--- NOTE | 2021-06-15 23:20 | NUR ---
CHECKED PATIENT. STABLE AND ASLEEP. CHEST IS RISING AND FALLING EVENLY. RESPIRATIONS EVEN AND UNLABORED WITH NO APPARENT S/SX OF ACUTE DISTRESS. WHITE COMMUNICATION BOARD UPDATED. ALL SAFETY MEASURES IN PLACE. CALL LIGHT WITHIN REACH. WILL CONTINUE TO MONITOR.
[2021-06-16] MEDS: HYDROcodone/APAP 7.5/325 MG 1 TAB PO PRN (01:13)
--- NOTE | 2021-06-16 01:20 | NUR ---
ANSWERED CALL LIGHT. PATIENT COMPLAINED OF PAIN 6/10 IN THE VAGINAL AREA. MEDICATED PER MD ORDER PATIENT IS ALSO REQUESTING TO BE CHANGED. ENDORSED TO [place] MISHRA. RESPIRATIONS EVEN AND UNLABORED WITH NO APPARENT S/SX OF ACUTE DISTRESS. WHITE COMMUNICATION BOARD UPDATED. ALL SAFETY MEASURES IN PLACE. CALL LIGHT WITHIN REACH. WILL CONTINUE TO MONITOR.
--- NOTE | 2021-06-16 03:20 | NUR ---
ROUNDED ON PATIENT. STABLE AND ASLEEP. CHEST IS RISING AND FALLING EVENLY. RESPIRATIONS EVEN AND UNLABORED WITH NO APPARENT S/SX OF ACUTE DISTRESS. WHITE COMMUNICATION BOARD UPDATED. ALL SAFETY MEASURES IN PLACE. CALL LIGHT WITHIN REACH. WILL CONTINUE TO MONITOR.
[2021-06-16 04:00] VITALS: BP 136/69
[2021-06-16] MEDS: LEVOTHYROXINE 0.112 MG TAB PO SCH (05:35)
[2021-06-16 07:18] LABS: BASOPHILS % (AUTO) 0.1 % (0.0-2.0); HEMATOCRIT 25.2 % (36-48); HEMOGLOBIN 8.1 g/dL (12.0-16.0); LYMPHOCYTES # (AUTO) 0.6 K/uL (2.5-16.5); MEAN CORPUSCULAR HEMOGLOBIN 27 pg (27-31); MEAN CORPUSCULAR HGB CONC 32 g/dL (33-37); MEAN CORPUSCULAR VOLUME 83.8 fL (80-94); MONOCYTES # (AUTO) 0.6 K/uL (0.8-1.0); MONOCYTES % (AUTO) 3.2 % (1.7-9.3); NEUTROPHILS # (AUTO) 16.2 K/uL (1.8-7.7); PLATELET COUNT (AUTO) 441 K/uL (140-450); RED BLOOD CELL COUNT(AUTO) 3.01 MIL/uL (4.20-5.40); RED CELL DISTRIBUTION WIDTH 18.1 % (11.6-13.7); WHITE BLOOD COUNT (AUTO) 17.3 K/uL (4.8-10.8)
--- NOTE | 2021-06-16 07:20 | NUR ---
ENDORSED PATIENT TO MORNING SHIFT NURSE FOR CONTINUITY OF CARE. PATIENT IS STABLE.
--- NOTE | 2021-06-16 07:28 | NUR ---
REPORT RECEIVED FROM PM SHIFT CECI JONES FOR CONTINUITY OF CARE. PT. COMFORTABLY SLEEPING. NO RESP. DISTRESS OBSERVED ON NC 3L. BREATHINGS EVEN AND UNLABORED. ALL SAFETY MEASURES IN PLACE. WILL CONTINUE TO MONITOR THE PT.
[2021-06-16 08:00] VITALS: BP 157/71
[2021-06-16 08:04] LABS: ANION GAP 9.3 (8-16); ASPARTATE AMINOTRANSFERASE 15 U/L (15-37); CHLORIDE 98 mmol/L (98-107); CREATININE 0.8 mg/dL (0.6-1.3); GLUCOSE 185 mg/dL (74-106); POTASSIUM 4.3 mmol/L (3.5-5.1); SODIUM SERUM 136 mmol/L (136-145); TOTAL BILIRUBIN 0.3 mg/dL (0.0-1.0); UREA NITROGEN, BLOOD 31 mg/dL (7-18)
[2021-06-16 08:09] LABS: LYMPHOCYTES % (AUTO) 3.3 % (20.5-51.1); NEUTROPHILS % (AUTO) 93.4 % (42.2-75.2)
[2021-06-16] MEDS: ZINC SULF 220 MG CAP PO SCH (08:45)
[2021-06-16] MEDS: ASCORBIC ACID 500 MG TAB PO SCH (08:46)
[2021-06-16] MEDS: glipiZIDE 5 MG TAB PO SCH (08:46)
[2021-06-16] MEDS: ATORVASTATIN 20 MG TAB PO SCH (08:46)
[2021-06-16] MEDS: METOPROLOL 50 MG TAB PO SCH ×2 (08:47→21:29)
[2021-06-16] MEDS: DILTIAZEM 120 MG CAPER PO SCH (08:47)
[2021-06-16] MEDS: PANTOPRAZOLE 40 MG TABEC PO SCH (08:48)
[2021-06-16] MEDS: FUROSEMIDE 20 MG/2 ML VIAL IVP SCH ×2 (08:48→21:00)
[2021-06-16] MEDS: LEVOFLOXACIN 250 MG/D5 PREMIX 50 ML IV SCH (08:50)
--- NOTE | 2021-06-16 10:00 | NUR ---
ADMINISTRED MEDICATION SCHEDULED. PT, TOLERATED WELL. PT. STABLE AND SITTING IN THE BED. WITH NO SIGNS OF DISTRESS NOTED. ALL SAFETY MEASURES IN PLACE,. CALL LIGHT WITHIN REACH. WILL CONTINUE TO MONITOR THE PT.
[2021-06-16] MEDS: DABIGATRAN ETEXILATE MESYLAT 75 MG CAP PO SCH ×2 (10:15→21:40)
--- NOTE | 2021-06-16 12:30 | NUR ---
PT. COMFORTABLY RESTING IN THE BED. NO SIGNS OF DISTRESS OBSERVED. BREATHINGS EVEN AND UNLABORED . ALL SAFETY MEASURES IN PLACE. CALL LIGHT WITHIN REACH. WILL CONTINUE TO MONITOR THE PT.
[2021-06-16] MEDS: REMDESIVIR. 100 MG in NACL 0.9% 100 ML IV SCH (13:03)
--- NOTE | 2021-06-16 15:08 | NUR ---
ROUNDED TO THE PT'S ROOM. PT. ALERT,AWAKE. NO NOTED DISTRESS. BREATHINGS NORMAL. ALL SAFETY MEASURES IN PLACE. WILL CONTINUE TO MONITOR THE PT.
[2021-06-16 16:00] VITALS: BP 125/67
--- NOTE | 2021-06-16 17:45 | NUR ---
CLEANED AND REPOSITIONED THE PT. ATTENDED ALL NEEDS. NO DISTRESS OBSERVED. PROVIDED ALL SAFETY MEASURES. CALL LIGHT WITHIN REACH. WILL CONTINUE TO MONITOR THE PT.
--- NOTE | 2021-06-16 19:02 | NUR ---
PT. ALERT. AWAKE. STABLE. WILL ENDIRSE REPORT TO PM SHIFT NURSE FOR CONTINUITY OF CARE.
--- NOTE | 2021-06-16 19:03 | NUR ---
RECEIVED REPORT FROM MORNING SHIFT FOR CONTINUITY OF CARE. PATIENT IS STABLE IN BED. A&O4. VERBALLY RESPONSIVE AND ABLE TO COMMUNICATE NEEDS. ON 2L NC WITH NO APPARENT S/SX OF ACUTE DISTRESS. RESPIRATIONS EVEN AND UNLABORED. IV SITE OF RFA 18G IS PATENT/INTACT TKO. PATIENT IS INCONTINENT AND WILL USE CALL LIGHT FOR CHANGES. PLAN OF CARE AND WHITE COMMUNICATION BOARD UPDATED. CALL LIGHT WITHIN REACH. WILL CONTINUE TO MONITOR.
[2021-06-16 20:00] VITALS: BP 133/75
--- NOTE | 2021-06-16 20:00 | NUR ---
Patient's Plan of Care was discussed and reviewed with CECI FREED
--- NOTE | 2021-06-16 21:15 | NUR ---
ADMINISTERED SCHEDULED MEDICATIONS PER MD ORDER. TOLERATED WELL. NO ADVERSE REACTION NOTED. DENIES PAIN. RESPIRATIONS EVEN AND UNLABORED WITH NO APPARENT S/SX OF ACUTE DISTRESS. SNACKS PROVIDED. WHITE COMMUNICATION BOARD UPDATED. ALL SAFETY MEASURES IN PLACE. CALL LIGHT WITHIN REACH. WILL CONTINUE TO MONITOR.
[2021-06-16] MEDS ORDERED: HYDROcodone/APAP 7.5/325 MG 1 TAB PO PRN (22:45)
[2021-06-16] MEDS ORDERED: ZOLPIDEM 5 MG TAB PO PRN (22:50)
--- NOTE | 2021-06-17 01:15 | NUR ---
ANSWERED CALL LIGHT. CLEANED AND CHANGED PATIENT. TOLERATED WELL. DENIES PAIN. RESPIRATIONS EVEN AND UNLABORED WITH NO APPARENT S/SX OF ACUTE DISTRESS. WHITE COMMUNICATION BOARD UPDATED. ALL SAFETY MEASURES IN PLACE. CALL LIGHT WITHIN REACH. WILL CONTINUE TO MONITOR.
[2021-06-17] MEDS: DOCUSATE SODIUM 100 MG GELCAP PO PRN (01:27)
[2021-06-17 04:00] VITALS: BP 126/77
--- NOTE | 2021-06-17 05:15 | NUR ---
ANSWERED CALL LIGHT. CLEANED AND CHANGED PATIENT. TOLERATED WELL. DENIES PAIN. RESPIRATIONS EVEN AND UNLABORED WITH NO APPARENT S/SX OF ACUTE DISTRESS. ALL NEEDS MET. WHITE COMMUNICATION BOARD UPDATED. ALL SAFETY MEASURES IN PLACE. CALL LIGHT WITHIN REACH. WILL CONTINUE TO MONITOR.
[2021-06-17] MEDS: LEVOTHYROXINE 0.112 MG TAB PO SCH (05:32)
--- NOTE | 2021-06-17 07:15 | NUR ---
RECEIVED ENDORSEMENT FROM INSTRUMENT REPAIR SPECIALIST NURSE FOR CONTINUITY OF CARE.
--- NOTE | 2021-06-17 07:15 | NUR ---
ENDORSED PATIENT TO MORNING SHIFT FOR CONTINUITY OF CARE. PATIENT IS STABLE.
[2021-06-17 07:33] LABS: ALBUMIN 2.1 g/dL (3.4-5.0); ANION GAP 8.6 (8-16); ASPARTATE AMINOTRANSFERASE 15 U/L (15-37); BASOPHILS % (AUTO) 0.1 % (0.0-2.0); CARBON DIOXIDE 35.6 mmol/L (21-32); CHLORIDE 97 mmol/L (98-107); CREATININE 0.9 mg/dL (0.6-1.3); GLUCOSE 204 mg/dL (74-106); HEMATOCRIT 26.9 % (36-48); HEMOGLOBIN 8.7 g/dL (12.0-16.0); LYMPHOCYTES # (AUTO) 0.4 K/uL (2.5-16.5); LYMPHOCYTES % (AUTO) 2.4 % (20.5-51.1); MEAN CORPUSCULAR HEMOGLOBIN 27 pg (27-31); MEAN CORPUSCULAR HGB CONC 32 g/dL (33-37); MEAN CORPUSCULAR VOLUME 83.6 fL (80-94); MONOCYTES # (AUTO) 0.7 K/uL (0.8-1.0); NEUTROPHILS # (AUTO) 16.9 K/uL (1.8-7.7); NEUTROPHILS % (AUTO) 93.5 % (42.2-75.2); PLATELET COUNT (AUTO) 463 K/uL (140-450); POTASSIUM 4.2 mmol/L (3.5-5.1); RED BLOOD CELL COUNT(AUTO) 3.22 MIL/uL (4.20-5.40); RED CELL DISTRIBUTION WIDTH 18.3 % (11.6-13.7); SODIUM SERUM 137 mmol/L (136-145); TOTAL BILIRUBIN 0.3 mg/dL (0.0-1.0); UREA NITROGEN, BLOOD 33 mg/dL (7-18)
--- NOTE | 2021-06-17 07:45 | NUR ---
RECEIVED REPORT FROM GAL ORNELAS FOR CONTINUITY OF CARE. PLAN OF CARE DISCUSSED.
[2021-06-17 07:48] LABS: MAGNESIUM 2.3 mg/dL (1.8-2.4); PHOSPHORUS 3.3 mg/dL (2.5-4.9)
[2021-06-17] MEDS: glipiZIDE 5 MG TAB PO SCH (08:56)
[2021-06-17] MEDS: ZINC SULF 220 MG CAP PO SCH (08:58)
[2021-06-17] MEDS: ATORVASTATIN 20 MG TAB PO SCH (08:58)
[2021-06-17] MEDS: PANTOPRAZOLE 40 MG TABEC PO SCH (08:59)
[2021-06-17] MEDS: ASCORBIC ACID 500 MG TAB PO SCH (08:59)
[2021-06-17] MEDS: LEVOFLOXACIN 250 MG/D5 PREMIX 50 ML IV SCH (08:59)
[2021-06-17] MEDS: DABIGATRAN ETEXILATE MESYLAT 75 MG CAP PO SCH ×2 (09:03→21:00)
--- NOTE | 2021-06-17 09:13 | NUR ---
GIVEN ALL DUE MEDICATION TOLERATED WELL.
[2021-06-17] MEDS: METOPROLOL 50 MG TAB PO SCH ×2 (09:15→21:00)
[2021-06-17] MEDS: DILTIAZEM 120 MG CAPER PO SCH (09:18)
[2021-06-17] MEDS: FUROSEMIDE 20 MG/2 ML VIAL IVP SCH (10:53)
--- NOTE | 2021-06-17 11:00 | NUR ---
PT ON ED NO DISTRESS. CALM AND COOPERATIVE. CALL LIGHT WITH IN EASY REACH.
[2021-06-17 12:00] VITALS: BP 126/53
[2021-06-17] MEDS: REMDESIVIR. 100 MG in NACL 0.9% 100 ML IV SCH (12:47)
--- NOTE | 2021-06-17 13:00 | NUR ---
ASSISTED TO REPOSITION PT. CALL LIGHT WITH IN EASY REACH.
--- NOTE | 2021-06-17 15:00 | NUR ---
PHYSICAL THERAPY CO-SIGN The Physical Therapy Progress Notes documented by Senior Systems Architect have been reviewed. Reviewed/Co-Signed by: Ivelisse Chavez Documentation Done by: MEAGAN BONILLA PTA Addendum: 06/17/21 at 1500 by Ivelisse Chavez PT Amended: Links added.
--- NOTE | 2021-06-17 16:56 | NUR ---
NASAL CANULA ON HER NARES BUT O2 IS OFF WITH SATURATION OF 97%. NOT ON ANY DISTRESS OR SHORTNESS OF BREATH.
--- NOTE | 2021-06-17 19:20 | NUR ---
GAVE REPORT TO WORM PICKER NURSE FOR CONTINUITY OF CARE.
[2021-06-17 20:00] VITALS: BP 129/62
--- NOTE | 2021-06-17 20:46 | NUR ---
PT LAYING IN BED HOB ELEVATED, BS CLEAR/DIMINISHED THROUGHOUT, NO SIGNS OF RESPIRATORY DISTRESS NOTED AT THIS TIME. PT IS CURRENTLY SATING 95% ON RA WILL CONTINUE TO MONITOR.
[2021-06-17] MEDS: LORazepam 0.5 MG TAB PO PRN (22:50)
[2021-06-18] MEDS: PIPERACILLIN/TAZOBACTAM 2.25 GM in DEXTROSE 5% 50 ML IV SCH ×2 (05:00→13:23)
[2021-06-18] MEDS ORDERED: PIPERACILLIN/TAZOBACTAM 2.25 GM VIAL IV ONE (06:28)
[2021-06-18] MEDS: LEVOTHYROXINE 0.112 MG TAB PO SCH (06:33)
[2021-06-18 06:40] VITALS: BP 131/69
[2021-06-18 06:41] LABS: BASOPHILS % (AUTO) 0.3 % (0.0-2.0); HEMATOCRIT 24.4 % (36-48); HEMOGLOBIN 7.8 g/dL (12.0-16.0); LYMPHOCYTES # (AUTO) 0.5 K/uL (2.5-16.5); LYMPHOCYTES % (AUTO) 3.1 % (20.5-51.1); MEAN CORPUSCULAR HEMOGLOBIN 27 pg (27-31); MEAN CORPUSCULAR HGB CONC 32 g/dL (33-37); MONOCYTES # (AUTO) 0.8 K/uL (0.8-1.0); MONOCYTES % (AUTO) 5.6 % (1.7-9.3); NEUTROPHILS # (AUTO) 13.6 K/uL (1.8-7.7); PLATELET COUNT (AUTO) 419 K/uL (140-450); RED BLOOD CELL COUNT(AUTO) 2.95 MIL/uL (4.20-5.40); RED CELL DISTRIBUTION WIDTH 18.5 % (11.6-13.7); WHITE BLOOD COUNT (AUTO) 14.9 K/uL (4.8-10.8)
[2021-06-18 07:00] LABS: ALBUMIN 1.9 g/dL (3.4-5.0); ANION GAP 9.6 (8-16); ASPARTATE AMINOTRANSFERASE 14 U/L (15-37); CARBON DIOXIDE 32.7 mmol/L (21-32); CHLORIDE 99 mmol/L (98-107); GLUCOSE 218 mg/dL (74-106); POTASSIUM 4.3 mmol/L (3.5-5.1); SODIUM SERUM 137 mmol/L (136-145); TOTAL BILIRUBIN 0.3 mg/dL (0.0-1.0); UREA NITROGEN, BLOOD 36 mg/dL (7-18)
[2021-06-18 07:09] LABS: MAGNESIUM 2.1 mg/dL (1.8-2.4); PHOSPHORUS 3.3 mg/dL (2.5-4.9)
--- NOTE | 2021-06-18 07:14 | NUR ---
RECEIVED ENDORSEMENT FROM LONG LINES OPERATOR NURSE FOR CONTINUITY OF CARE.
--- NOTE | 2021-06-18 07:48 | NUR ---
PHYSICAL THERAPY CO-SIGN The Physical Therapy Progress Notes documented by Materials Handler have been reviewed. Reviewed/Co-Signed by: Ivelisse Chavez Documentation Done by: MEAGAN BONILLA PTA Addendum: 06/18/21 at 0748 by Ivelisse Chavez PT Amended: Links added.
[2021-06-18] MEDS ORDERED: FUROSEMIDE 40 MG/4 ML VIAL IVP SCH (09:00)
[2021-06-18] MEDS: ZINC SULF 220 MG CAP PO SCH (09:23)
[2021-06-18] MEDS: ATORVASTATIN 20 MG TAB PO SCH (09:23)
[2021-06-18] MEDS: DILTIAZEM 120 MG CAPER PO SCH (09:23)
[2021-06-18] MEDS: METOPROLOL 50 MG TAB PO SCH (09:24)
[2021-06-18] MEDS: PANTOPRAZOLE 40 MG TABEC PO SCH (09:24)
[2021-06-18] MEDS: ASCORBIC ACID 500 MG TAB PO SCH (09:24)
[2021-06-18] MEDS: DABIGATRAN ETEXILATE MESYLAT 75 MG CAP PO SCH (09:26)
[2021-06-18] MEDS: glipiZIDE 5 MG TAB PO SCH (09:29)
[2021-06-18] MEDS: DOCUSATE SODIUM 100 MG GELCAP PO PRN (09:40)
--- NOTE | 2021-06-18 09:41 | NUR ---
GIVEN ALL HER DUE MEDICATION AND COMPLAIN OF CONSTIPATION GIVEN COLACE AND ENCOURAGED TO INCREASE FLUID INTAKE.
[2021-06-18] MEDS ORDERED: ZINC220C29 PO (10:36)
[2021-06-18] MEDS ORDERED: VITC500 PO (10:36)
[2021-06-18] MEDS ORDERED: PANT40EC56 PO (10:36)
[2021-06-18] MEDS ORDERED: POTA8TAB19 PO (10:36)
[2021-06-18] MEDS ORDERED: METO50TA99 PO (10:36)
[2021-06-18] MEDS ORDERED: LEVO0.118 PO (10:36)
[2021-06-18] MEDS ORDERED: FURO-570 PO (10:36)
[2021-06-18] MEDS ORDERED: GLIP5TAB13 PO (10:36)
[2021-06-18] MEDS ORDERED: DILT120C95 PO (10:36)
[2021-06-18] MEDS ORDERED: ATOR20TA40 PO (10:36)
[2021-06-18] MEDS ORDERED: PIPE1SOL IV (10:36)
[2021-06-18] MEDS ORDERED: DABI75CA PO (10:36)
--- NOTE | 2021-06-18 10:58 | NUR ---
PT STILL COMPLAINING OF CONSTIPATION INFORM DR. BISHOP ORDER TO GIVE ENEMA ORDER NOTED AND CARRIED OUT.
[2021-06-18] MEDS ORDERED: SODIUM PHOSPHATE 118 ML ENEM RC PRN (11:00)
[2021-06-18] MEDS ORDERED: SODIUM PHOSPHATE 118 ML ENEM RC SCH (11:30)
--- NOTE | 2021-06-18 11:41 | NUR ---
DC PLANNING: CM SPOKE WITH THE PATIENTS SISTER DEANNA BY PHONE. THE PATIENT LIVED IN HER OWN HOME AND HAD A ROOMATE LIVING WITH HER WHO COULD CHECK ON HER IN THE MORNING AND AT NIGHT. PATIENT WAS ABLE TO AMBULATE WITH A FWW AND WAS INDEPENDENT IN SELF CARE, HAD NO HOME HEALTH. HER SISTER STATES THAT SHE WOULD LIKE TO MOVE THE PATIENT BACK TO [place] WHEN SHE IS WELL ENOUGH AND CAN TOLERATE THE TRIP. THE PATIENT IS ACCEPTED BACK TO [facility] [place], ROOM [address], DR STERLING WILL BE FOLLOWING. TRANSPORT ARRANGED THROUGH [facility] AT 1600, STATES THEY WILL CALL THE FLOOR IF THE TIME IS DIFFERENT AND THEY WILL ARRANGE WITH [facility]. CM WILL FOLLOW.
[2021-06-18 12:00] VITALS: BP 150/80
--- NOTE | 2021-06-18 12:00 | NUR ---
GAVE ENEMA ORDER FOR CONSTIPATION.
[2021-06-18] MEDS: REMDESIVIR. 100 MG in NACL 0.9% 100 ML IV SCH (14:05)
--- NOTE | 2021-06-18 14:14 | NUR ---
GAVE REPORT TO PENNY RODRIGUEZ FROM [facility] OR PT CONTINUITY OF CARE.
--- NOTE | 2021-06-18 16:13 | NUR ---
PT ALERT AND ORIENTED NOT ON ANY DISTRESS AND DISCOMFORT. PT ARM BAND REMOVED. IV SITE ON RIGHT HAND INTACT. GIVEN DISCHARGE PACKET AND ALL BELONGING. PT WITH UNDERSTANDING DISCHARGE PLAN OF CARE.
--- NOTE | 2021-06-19 07:38 | NUR ---
PHYSICAL THERAPY CO-SIGN The Physical Therapy Progress Notes documented by [facility] Worker have been reviewed. Reviewed/Co-Signed by: Ivelisse Chavez Documentation Done by: MEAGAN BONILLA PTA Addendum: 06/19/21 at 0738 by Ivelisse Chavez PT Amended: Links added.
== END 2021-06-18 16:10 | DRG 871 ==
LOC: MED 01:11 → MTU 09:00
PROVIDERS: ADMIT Family Medicine; ATTEND Family Medicine
PROC: 0W9B3ZZ Drainage of Left Pleural Cavity, Percutaneous Approach (ICD-10-PCS; principal; 2021-06-10)
PROC: XW033E5 Introduction of Remdesivir Anti-infective into Peripheral Vein, Percutaneous Approach, New Technology Group 5 (ICD-10-PCS; 2021-06-15)
DX: A41.9 Sepsis, unspecified organism (principal); J69.0 Pneumonitis due to inhalation of food and vomit; E43 Unspecified severe protein-calorie malnutrition; J96.01 Acute respiratory failure with hypoxia; J12.82 Pneumonia due to coronavirus disease 2019; U07.1 COVID-19; D68.59 Other primary thrombophilia; J91.8 Pleural effusion in other conditions classified elsewhere; F41.9 Anxiety disorder, unspecified; M19.90 Unspecified osteoarthritis, unspecified site; E11.9 Type 2 diabetes mellitus without complications; I48.91 Unspecified atrial fibrillation; D64.9 Anemia, unspecified; K44.9 Diaphragmatic hernia without obstruction or gangrene; I11.9 Hypertensive heart disease without heart failure; R91.1 Solitary pulmonary nodule; Z88.1 Allergy status to other antibiotic agents; Z88.8 Allergy status to other drugs, medicaments and biological substances; Z87.01 Personal history of pneumonia (recurrent); Z68.21 Body mass index [BMI] 21.0-21.9, adult
CPT/HCPCS: 36415; 36600; 71045; 71250; 76604; 76942; 80053; 82150; 82803; 82945; 82948; 83036; 83605; 83615; 83690; 83735; 83880; 84100; 84157; 84436; 84439; 84443; 84479; 84484; 85025; 85379; 85610; 85651; 85730; 86140; 87040; 87070; 87075; 87081; 87205; 89051; 93005; 96365; 96367; 97110; 97112; 97116; 97163-GP; 97530; 99291; J0456; J0696; J1644; J1940; J1956; J2001; J2543; J3490; J3535; J7060; Q0092; U0003